=== PATIENT | male | born 1950 | race Caucasian/White ===

== ENCOUNTER 2016-11-06 09:01 | Day surgery (SDC) | payer OTHER ==
--- NOTE | 2016-10-31 15:29 | HISTORY AND PHYSICAL E ---
History and Physical NAME: ERNESTINA FERNANDEZ : 1950 AGE: 65Y ADMITTED: 11/06/2016 ROOM: CHIEF COMPLAINT: Colon screening. SOCIAL HISTORY: The patient is 65, , does not smoke, drinks rarely. PAST SURGICAL HISTORY: He had cardiac valve surgery, tonsillectomy, colon exam 7 years ago. PAST MEDICAL HISTORY: The patient is known to have diabetes. He did have a herniated disk at L5. REVIEW OF SYSTEMS: CARDIAC: Cardiac valve replacement. ENDOCRINE: Diabetes. GASTROINTESTINAL: Colon screening. ONCOLOGY/HEMATOLOGY: Negative. NEUROLOGIC: Negative. FAMILY HISTORY: Father had heart disease. Mom with asthma and respiratory failure. PHYSICAL EXAMINATION: VITAL SIGNS: Blood pressure is 120/80, pulse 80, respirations 18, temp is 98. Weight is 272. HEENT: Normal. NECK: Supple. CARDIOVASCULAR: Normal. LUNGS: Clear. ABDOMEN: Soft. NEUROLOGIC: Exam negative. MEDICATIONS: 1. The patient is on blood thinners. 2. He takes insulin. 3. He is taking oral diabetes medications. PLAN: Schedule for colon 11/06/2016. DICTATING PHYSICIAN: JIMMY MCDONOUGH M.D. [id number] [id number] PHY#: [id number] ID: [id number] JOB#: [id number] ACCT: [id number] cc:JIMMY MCDONOUGH M.D. >
[2016-11-06] MEDS ORDERED: ONDANSETRON HCL INJ/PF 4 MG/2 ML SDV ONE (09:13)
[2016-11-06] MEDS ORDERED: NALOXONE HCL INJ/PF 0.4 MG/1 ML SDV ONE (09:13)
[2016-11-06] MEDS ORDERED: PROMETHAZINE HCL INJ 25 MG/1 ML VIAL ONE (09:13)
[2016-11-06] MEDS ORDERED: LIDOCAINE 2% JELLY 30 ML TUBE ONE (09:13)
[2016-11-06] MEDS ORDERED: GLYCOPYRROLATE INJ 0.4 MG/2 ML VIAL ONE (09:13)
[2016-11-06] MEDS ORDERED: EPINEPHRINE INJ 1 MG/10 ML DISP.SYRIN ONE (09:14)
[2016-11-06] MEDS ORDERED: FLUMAZENIL INJ 0.5 MG/5 ML VIAL IV ONE (09:14)
[2016-11-06] MEDS ORDERED: GLUCAGON,HUMAN RECOMB 1 MG INJ ONE (09:14)
[2016-11-06] MEDS: MIDAZOLAM 2 MG/2 ML INJ ONE ×2 (09:31→09:39)
[2016-11-06] MEDS: FENTANYL CITRATE INJ/PF 100 MCG/2 ML AMPUL ONE ×2 (09:33→09:37)
[2016-11-06 10:46] VITALS: BP 110/70
--- NOTE | 2016-11-06 14:52 | DISCHARGE SUMMARY E ---
Discharge Summary NAME: ERNESTINA FERNANDEZ : 1950 AGE: 65Y ADMITTED: 11/06/2016 DISCHARGED: 11/06/2016 BRIEF HISTORY: The patient is a 65-year-old male. The patient presented for colon screening. He did have colonoscopy 7 ago showing diverticulosis. Today's colonoscopy showed no polyps. He did have sigmoid diverticulosis of cecum and ascending diverticulosis. DISCHARGE PLAN: 1. Soft diet. 2. Resume all medications including Coumadin. 3. Consider followup colonoscopy in 5-7 years. PROCEDURE: Colonoscopy. FINAL DIAGNOSES: 1. Diverticulosis, right colon, sigmoid diverticulosis. 2. No polyps. DICTATING PHYSICIAN: JIMMY MCDONOUGH M.D. [id number] [id number] PHY#: [id number] ID: [id number] JOB#: [id number] ACCT: [id number] cc:, [facility] JIMMY MCDONOUGH M.D. >
--- NOTE | 2016-11-06 14:56 | OPERATIVE REPORT E ---
Operative Report NAME: ERNESTINA FERNANDEZ : 1950 AGE: 65Y DATE OF SURGERY: 11/06/2016 ROOM: PREOPERATIVE DIAGNOSIS: COLON SCREENING. POSTOPERATIVE DIAGNOSES: 1. EXTERNAL HEMORRHOIDS, MILD. 2. DIVERTICULOSIS, DIFFUSE, RIGHT COLON, CECUM AND SIGMOID COLON. OPERATION: Colonoscopy. SURGEON: JIMMY MCDONOUGH M.D. ANESTHESIA: Versed 2, fentanyl 100. TISSUE REMOVED OR ALTERED: None. Pro time was not done prior to colonoscopy so we canceled it. The patient is off Coumadin for 5 days. No tissue done. No biopsy. PROCEDURE: Rectal exam; external hemorrhoids. Sigmoid; diverticulosis. Descending colon; diverticulosis. Transverse colon; normal. Ascending colon; diverticulosis. Cecum; diverticulosis. Scope withdrawn from cecum, ascending, transverse, descending, sigmoid all the way to the rectum. CONCLUSIONS: No polyps. RECOMMENDATIONS: Recommend followup colonoscopy in 5 to 7 years. DICTATING PHYSICIAN: JIMMY MCDONOUGH M.D. [id number] [id number] Y#: [id number] ID: [id number] JOB#: [id number] ACCT: [id number] cc:JIMMY MCDONOUGH M.D. , [facility]
== END 2016-11-06 10:50 | disposition home or self-care (01) ==
LOC: END 09:01
PROVIDERS: ATTEND Specialist
PROC: 0DJD8ZZ Inspection of Lower Intestinal Tract, Via Natural or Artificial Opening Endoscopic (ICD-10-PCS; principal; 2016-11-06 10:00)
DX: Z12.11 Encounter for screening for malignant neoplasm of colon (principal); K57.30 Diverticulosis of large intestine without perforation or abscess without bleeding; K64.4 Residual hemorrhoidal skin tags; E11.9 Type 2 diabetes mellitus without complications; Z79.4 Long term (current) use of insulin; Z79.01 Long term (current) use of anticoagulants; Z95.2 Presence of prosthetic heart valve; Z79.84 Long term (current) use of oral hypoglycemic drugs
CPT/HCPCS: 45378; 82962; J2250; J3010; J1610; J2405; J0171; J2310; J2550; J3490

== ENCOUNTER 2018-11-27 10:27 | Emergency (ER) | payer OTHER ==
--- NOTE | 2018-11-27 11:39 | ER Document Report ---
ED Extremity Problem, Lower - General Chief Complaint: Feet Swelling Stated Complaint: FOOT PAIN Time Seen by Provider: 11/27/18 11:20 [facility] Care Provider: [facility] [[facility]] - Follow up as needed Mode of Arrival: Ambulatory Information source: Patient TRAVEL OUTSIDE OF THE [place] IN LAST 30 DAYS: No - HPI Patient complains to provider of: Swelling Location: Leg - Left leg Occurred: Yesterday Where: Home Onset/Duration: Sudden Quality of pain: No pain Severity: None Pain Level: Denies Context: Other - None Recent injury: No Associated symptoms: denies: Chest pain, Painful ambulation, Short of breath Exacerbated by: Nothing Relieved by: Nothing - Related Data Allergies/Adverse Reactions: Penicillins Allergy (Intermediate, Verified 11/27/18 10:31) Facial edema and rash Past Medical History - Social History Smoking Status: Unknown if Ever Smoked Family History: Reviewed & Not Pertinent - Past Medical History Cardiac Medical History: Reports: Hx Hypertension Denies: Hx Coronary Artery Disease, Hx Heart Attack Pulmonary Medical History: Denies: Hx Asthma, Hx Bronchitis, Hx COPD, Hx Pneumonia Neurological Medical History: Denies: Hx Cerebrovascular Accident, Hx Seizures Musculoskeletal Medical History: Denies Hx Arthritis - Immunizations Hx Diphtheria, Pertussis, Tetanus Vaccination: Yes Review of Systems - Review of Systems Constitutional: No symptoms reported EENT: No symptoms reported Cardiovascular: No symptoms reported Respiratory: No symptoms reported Gastrointestinal: No symptoms reported Genitourinary: No symptoms reported Male Genitourinary: No symptoms reported Musculoskeletal: Leg swelling. denies: Joint pain, Joint swelling, Muscle pain Skin: No symptoms reported Hematologic/Lymphatic: No symptoms reported Neurological/Psychological: No symptoms reported Physical Exam - Vital signs Vitals: Temp Pulse Resp BP Pulse Ox 98.5 F 64 16 148/82 H 98 11/27/18 10:36 11/27/18 10:36 11/27/18 10:36 11/27/18 10:36 11/27/18 10:36 Interpretation: Normal - General General appearance: Appears well, Alert - HEENT Head: Normocephalic, Atraumatic Eyes: Normal Pupils: PERRL - Respiratory Respiratory status: No respiratory distress Chest status: Nontender Breath sounds: Normal Chest palpation: Normal - Cardiovascular Rhythm: Regular Heart sounds: Normal auscultation Murmur: No - Abdominal Inspection: Normal Distension: No distension Bowel sounds: Normal Tenderness: Nontender Organomegaly: No organomegaly - Back Back: Normal, Nontender - Extremities General upper extremity: Normal inspection, Nontender, Normal color, Normal ROM, Normal temperature General lower extremity: Nontender, Edema, Normal color, Normal ROM, Normal temperature, Normal weight bearing, Other - Left leg pitting edema.. No: Anca's sign - Neurological Neuro grossly intact: Yes Cognition: Normal Orientation: AAOx4 Marques Coma Scale Eye Opening: Spontaneous Marques Coma Scale Verbal: Oriented Marques Coma Scale Motor: Obeys Commands Temperance Coma Scale Total: 15 Speech: Normal Motor strength normal: LUE, RUE, LLE, RLE Sensory: Normal - Psychological Associated symptoms: Normal affect, Normal mood - Skin Skin Temperature: Warm Skin Moisture: Dry Skin Color: Normal Course - Vital Signs Vital signs: Temp Pulse Resp BP Pulse Ox 97.9 F 91 16 150/97 H 100 11/27/18 14:04 11/27/18 14:04 11/27/18 14:04 11/27/18 14:04 11/27/18 14:04 - Laboratory Laboratory results interpreted by [facility]: 11/27/18 11:30 POC Glucose 174 H - Diagnostic Test Radiology reviewed: Pending Radiology results interpreted by me: 11/27/18 13:28 The copy room technician gave me a verbal report that the DVT study on the left lower extremity is negative. The final result will be followed by Ms. Miladis Bray at Ext. [phone] and she will contact the patient if the final radiology report is different. I have called and given Ms. Bray the patient information. 11/27/18 13:39 Discharge - Discharge Clinical Impression: Leg edema, left Condition: Stable Disposition: HOME, SELF-CARE Instructions: Edema, Peripheral ([facility]) Additional Instructions: Please follow-up with your primary doctor today. Return to the emergency room if your condition worsens. Referrals: [facility] [Primary Care Provider] - Follow up as needed
[2018-11-27 14:09] VITALS: BP 150/97
--- NOTE | 2018-11-27 14:21 | XCELERA REPORT ---
[address] [place] [facility] [address] Lower Extremity Venous Evaluation Procedure: Color flow and duplex imaging of the veins of the left lower extremity as well as the right Common Femoral vein. Right Sided Venous Evaluation The right common femoral vein is fully compressible. Spontaneous and phasic flow is present in the right common femoral vein. Left Sided Venous Evaluation Normal vessel filling wall to wall, compression and augmentation as well as Colour flow down to the infrageniculate veins. Interpretation Summary No duplex evidence of DVT or obstruction in the left lower extremity nor in the right Common Femoral vein. Name: ERNESTINA FERNANDEZ Age: 68 yrs Gender: Male : 1950 Patient Status: Emergency Patient Location: ER Study Date: 11/27/2018 01:17 PM Reason For Study: Left leg swelling. Evaluate for DVT. Ordering Physician: JYOTI AGUILERA Performed By: Bess Campos : JYOTI AGUILERA > Mesfin Ellis
== END 2018-11-27 14:09 | disposition home or self-care (01) ==
LOC: ER 10:27
DX: R60.9 Edema, unspecified (principal); I10 Essential (primary) hypertension; Z88.0 Allergy status to penicillin
CPT/HCPCS: 82962; 93971; 99284

== ENCOUNTER 2019-04-09 06:36 | Day surgery (SDC) | payer OTHER ==
[~2019-04-09 06:36] MED LIST: KETOROLAC TROMETHAMINE 0.45% 4 DROP/0.4 ML DROPERETTE OD PRN
[2019-04-09] MEDS: CYCLOPENTOLATE 0.2%/PHENYLEPHRINE 1% OPH SOLN 2 ML OD PRN ×3 (06:47→07:20)
[2019-04-09] MEDS: TROPICAMIDE 1% OPH SOLN 3 ML OD PRN ×3 (06:47→07:20)
[2019-04-09] MEDS: BESIFLOXACIN HCL 0.6% OPH SUSP 5 ML BOTTLE OD PRN ×4 (06:48→07:45)
[2019-04-09] MEDS: TETRACAINE HCL 0.5% OPH SOLN 4 ML OD PRN ×3 (06:49→07:28)
[2019-04-09] MEDS ORDERED: EPINEPHRINE INJ/PF 1 MG/1 ML AMPULE ONE (07:10)
[2019-04-09] MEDS ORDERED: LIDOCAINE 1%/PHENYLEPHRINE 1.5% 1 ML VIAL ONE (07:11)
[2019-04-09] MEDS ORDERED: CHONDR SU A NA/HYALUR INTRAOC KIT (SURGICARE) ONE (07:11)
[2019-04-09] MEDS ORDERED: MIDAZOLAM 2 MG/2 ML INJ ONE (07:15)
[2019-04-09] MEDS: DORZOLAMIDE HCL 2%/TIMOLOL MALEAT 0.5% OPH SOLN 10 ML OD PRN ×2 (07:45)
--- NOTE | 2019-04-09 22:25 | [facility] DISCHARGE SUMMARY E ---
[facility] Discharge Summary NAME: ERNESTINA FERNANDEZ AGE: 68Y ADMITTED: 04/09/2019 DISCHARGED: 04/09/2019 HOSPITAL COURSE: This is a 68-year-old patient who underwent cataract extraction of the right eye. DIAGNOSIS: CATARACT, RIGHT EYE. He underwent surgery because he was having difficulty seeing small print. DISCHARGE INSTRUCTIONS: He should is to be on a regular diet. No bending at his waist, no heavy lifting. He should use his Vigamox, Ketorolac, and Predforte at 3 p.m. and 8 p.m. and sleep with a rigid shield. I will see him for his 1 day postoperative tomorrow. DICTATING PHYSICIAN: TESSA JEFFREY M.D. [id number] [id number] PHY#: [id number] ID: [id number] JOB#: [id number] ACCT: [id number] cc:TESSA JEFFREY M.D. >
--- NOTE | 2019-04-09 22:26 | [facility] OPERATIVE REPORT E ---
[facility] Operative Report NAME: ERNESTINA FERNANDEZ AGE: 68Y DATE OF SURGERY: 04/09/2019 ROOM: PREOPERATIVE DIAGNOSIS: CATARACT, RIGHT EYE. POSTOPERATIVE DIAGNOSIS: CATARACT, RIGHT EYE. OPERATION: Cataract extraction with insertion of an IOL of the right eye. SURGEON: TESSA JEFFREY M.D. ANESTHESIA: Topical. PROCEDURE: After obtaining appropriate consent, the patient's right eye was prepped and draped in sterile fashion as well as the surgeon in a sterile manner and cataract surgery was started. First a paracentesis blade was used to make a side-port incision. Viscoelastic was used to inflate the anterior chamber. Next a 2.4 mm incision was made with a 2.4 mm blade, clear corneal temporally. A continuous capsulorrhexis was made using a cystotome and Utrata forceps. Following this hydrodissection was carried out to make the lens fully loose and mobile and it was rotated 90 degrees. Following this, a vuuzpc-emn-ccalznj technique was used to phacoemulsify the lens with a CDE of 6.63. The remaining cortex was removed with irrigation/aspiration. Provisc was instilled into the capsular bag to inflate the bag. A SN60WF, 14.5 diopter lens was placed. The remaining viscoelastic material was removed with irrigation/aspiration. Following this, the incision was found to be watertight. Besivance was instilled into the eye and a protective shield was placed over the eye. The patient returned to the postoperative recovery in stable condition. DICTATING PHYSICIAN: TESSA JEFFREY M.D. [id number] [id number] PHY#: [id number] ID: [id number] JOB#: [id number] ACCT: [id number] cc:TESSA JEFFREY M.D. >
== END 2019-04-09 08:22 | disposition home or self-care (01) ==
LOC: SC 06:36
PROVIDERS: ATTEND Internal Medicine
DX: H25.13 Age-related nuclear cataract, bilateral (principal); I10 Essential (primary) hypertension; E11.9 Type 2 diabetes mellitus without complications; M10.9 Gout, unspecified; I48.91 Unspecified atrial fibrillation; Z79.84 Long term (current) use of oral hypoglycemic drugs; Z79.899 Other long term (current) drug therapy; Z79.82 Long term (current) use of aspirin; Z79.01 Long term (current) use of anticoagulants
CPT/HCPCS: 66984; 82962; J2250; J3490 ×2; J0171; J2370; 142; V2632

== ENCOUNTER 2019-05-14 06:32 | Day surgery (SDC) | payer OTHER ==
[~2019-05-14 06:32] MED LIST changes: -KETOROLAC TROMETHAMINE 0.45% 4 DROP/0.4 ML DROPERETTE OD PRN; +KETOROLAC TROMETHAMINE 0.45% 4 DROP/0.4 ML DROPERETTE OS PRN
[2019-05-14] MEDS: TROPICAMIDE 1% OPH SOLN 3 ML OS PRN ×3 (06:51→07:19)
[2019-05-14] MEDS: TETRACAINE HCL 0.5% OPH SOLN 4 ML OS PRN ×3 (06:51→07:28)
[2019-05-14] MEDS: BESIFLOXACIN HCL 0.6% OPH SUSP 5 ML BOTTLE OS PRN ×4 (06:52→07:51)
[2019-05-14] MEDS: CYCLOPENTOLATE 0.2%/PHENYLEPHRINE 1% OPH SOLN 2 ML OS PRN ×3 (06:52→07:19)
[2019-05-14] MEDS ORDERED: LIDOCAINE 1%/PHENYLEPHRINE 1.5% 1 ML VIAL ONE (07:09)
[2019-05-14] MEDS ORDERED: EPINEPHRINE INJ/PF 1 MG/1 ML AMPULE ONE (07:09)
[2019-05-14] MEDS ORDERED: CHONDR SU A NA/HYALUR INTRAOC KIT (SURGICARE) ONE (07:09)
[2019-05-14] MEDS ORDERED: FENTANYL CITRATE INJ/PF 100 MCG/2 ML AMPUL ONE (07:14)
[2019-05-14] MEDS ORDERED: MIDAZOLAM 2 MG/2 ML INJ ONE (07:14)
[2019-05-14] MEDS: DORZOLAMIDE HCL 2%/TIMOLOL MALEAT 0.5% OPH SOLN 10 ML OS PRN ×2 (07:51)
--- NOTE | 2019-05-14 13:15 | Operative Report ---
Operative Report-[facility] Operative Report: DATE OF SURGERY: 05/14/2019 PREOPERATIVE DIAGNOSIS: Cataracts, left eye POSTOPERATIVE DIAGNOSIS: Cataract, left eye OPERATION: Cataract extraction with insertion of an IOL of the left eye. Intraocular Lens Model: [15.0 sn60wf] pt had difficulty driving and seeing road signs. SURGEON: Fortino Monaco MD ANESTHESIA: Topical PROCEDURE: After obtaining appropriate consent, the patient's left eye was prepped and draped in a sterile fashion as well as the surgeon in the sterile manner and cataract surgery was started. First a paracentesis blade was used to make a side-port incision. Viscoelastic was used to inflate the anterior chamber. Next a 2.4 mm incision was made with a 2.4 mm blade, clear corneal temporarily. A continuous capsulorrhexis was made using a cystotome and Utrata forceps. Following this hydrodissection was carried out to make commands fully loose and mobile and it was rotated 90 degrees. Following this, a divide and conquer technique was used to phacoemulsify the lens. The remaining cortex was removed with an irrigation/aspiration. Provisc was instilled into the capsular bag to inflate the bag.The intracular lens was placed. The remaining viscoelastic material was removed with irrigation/aspiration. Following this, the incision was found to be watertight. Besivance and Cosopt was instilled into the eye and a protective shield was placed over the eye. The patient was turned to the postoperative recovery in a stable condition.
== END 2019-05-14 08:28 | disposition home or self-care (01) ==
LOC: SC 06:32
PROVIDERS: ATTEND Internal Medicine
DX: H25.12 Age-related nuclear cataract, left eye (principal); Z96.1 Presence of intraocular lens; E11.9 Type 2 diabetes mellitus without complications; I10 Essential (primary) hypertension; I48.91 Unspecified atrial fibrillation; Z79.84 Long term (current) use of oral hypoglycemic drugs; Z79.899 Other long term (current) drug therapy; Z79.01 Long term (current) use of anticoagulants
CPT/HCPCS: 82962; 00142; 66984; V2632; J2250; J3490 ×2; J0171; J3010; J2370; 142